=== PATIENT | male | born 1965 | race Caucasian/White ===

== ENCOUNTER 2018-01-19 08:10 | Emergency (ER) | payer SELFPAY ==
[~2018-01-19] VITALS: Ht 170.2 cm; Wt 65.0 kg
[2018-01-19 08:11] VITALS: BP 113/88
== END 2018-01-19 11:03 | disposition left against medical advice (07) ==
LOC: ER 08:20
DX: Z53.21 Procedure and treatment not carried out due to patient leaving prior to being seen by health care provider (principal)